=== PATIENT | male | born 1995 | race Caucasian/White ===

== ENCOUNTER 2017-07-08 14:01 | Inpatient (IN) | payer OTHER, BC ==
[~2017-07-08] VITALS: Ht 172.7 cm; Wt 64.4 kg
--- NOTE | 2017-07-09 01:00 | NUR ---
PRE-ADMISSION NOTE : The patient is a 22-year-old male who presents to [facility] for medically supervised withdrawal from Heroin , Xanax. He doesnt have Primary Care Provider at this time. He denies history of seizures, denies SI/HI, denies any kind of hallucinations . His longest sober period was 65 days in 2016. He states his substance use has negatively impacted his life by impairing close relationships, and negatively impacting his physical and mental health. He was arrested x2 . XE=149/80, HR=72, SpO2=98% with RA, RR=16, Temp=98.2. [id number], Height=58, CIWA=6, COWS=4. Pt. will be admitted to the unit.
[2017-07-09] MEDS ORDERED: LORAZEPAM 1 MG TABLET PO PRN ×2 (01:15)
[2017-07-09] MEDS ORDERED: DICYCLOMINE HCL 20 MG TABLET PO PRN (01:15)
[2017-07-09] MEDS ORDERED: MIRALAX 17 GM POWD.PACK PO PRN (01:15)
[2017-07-09] MEDS ORDERED: LOPERAMIDE HCL 2 MG CAPSULE PO PRN ×2 (01:15)
[2017-07-09] MEDS ORDERED: diphenhydrAMINE 50 MG CAPSULE PO PRN (01:15)
[2017-07-09] MEDS ORDERED: CLONIDINE HCL 0.1 MG TABLET PO PRN (01:15)
[2017-07-09] MEDS ORDERED: MAG HYDROX/AL HYDROX/SIMETH 30 ML LIQUID UDC PO PRN (01:15)
[2017-07-09] MEDS ORDERED: LORAZEPAM 2 MG/1 ML VIAL IM PRN (01:15)
[2017-07-09] MEDS ORDERED: ONDANSETRON 4 MG/2 ML VIAL IM PRN (01:15)
[2017-07-09] MEDS ORDERED: METHOCARBAMOL 750 MG TABLET PO PRN (01:15)
[2017-07-09] MEDS ORDERED: HYDROXYZINE PAMOATE 25 MG CAPSULE PO PRN (01:15)
[2017-07-09] MEDS ORDERED: MAGNESIUM HYDROXIDE 30 ML LIQUID UDC PO PRN (01:15)
[2017-07-09] MEDS ORDERED: THIAMINE HCL 200 MG/2 ML VIAL IM ONE (01:15)
[2017-07-09] MEDS ORDERED: ACETAMINOPHEN 325 MG TABLET PO PRN (01:15)
--- NOTE | 2017-07-09 01:30 | NUR ---
ADMISSION NOTE : The patient is a 22-year-old male who presents to [facility] for medically supervised withdrawal from Heroin , Xanax. He was admitted on 07/09/2017 . It is his third Detox. Pt. is Full Code, on Reg.Diet, NKA. He doesnt have Primary Care Provider at this time. He denies history of seizures, denies SI/HI, denies any kind of hallucinations Pt. placed on FALL precautions. His longest sober period was 65 days in 2016. He states his substance use has negatively impacted his life by impairing close relationships, and negatively impacting his physical and mental health. He was arrested x2 . Upon assessment, pt is alert and oriented x3 , the patient reported the following symptoms of withdrawal: anxiety, felt tremors, difficulty concentrating, anhedonia. Pt is cooperative, speech is clear and audible. Heart rate is regular. Pt denies chest pain or SOB. PERRLA, breathing is even and unlabored. Lung sounds clear in all lobes, abdomen is soft, pt complains of constipation related to opiate use. WX=801/80, HR=72, SpO2=98% with RA, RR=16, Temp=98.2. [id number], Height=58. Last BM on 07/07/17. Pt's skin is warm, dry and intact. Pt was oriented to room and unit. Pt. was able to provide UDS sample , see results in the PC chart. Safety measures in place : bed on lowest position with side rails x2 up for safety, call light within reach. Will continue to monitor closely and offer help. SUBSTANCE ABUSE HISTORY : -Xanax 4mg QD PO since 06/2017, last use on 07/08/2017, uses since 2016 -HEROIN 2gm snorting QD since 02/2017, last use on 07/08/2017, uses since 2010 Pt. smokes 20 cigarettes QD Occasionally smokes MJ 3.5gm x3-x4/week since 05/2017 , , last use on 07/08/2017, uses since 2007 PAST MEDICAL HISTORY : None Past Family History : - Alcohol and substance use disorder, HTN(father) -Breast Ca. (mother) PAST Tx HISTORY : X3 Detox. X2 Rehab.
[2017-07-09 01:59] LABS: *AMPHETAMINE, URINE NEGATIVE (NEGATIVE); *BARBITURATE, URINE NEGATIVE (NEGATIVE); *CANNABINOID, URINE POSITIVE (NEGATIVE); *COCCAINE, URINE NEGATIVE (NEGATIVE); *OPIATE, URINE POSITIVE (NEGATIVE); *PHENCYCLIDINE SCREEN,URINE NEGATIVE (NEGATIVE)
[2017-07-09 04:00] VITALS: BP 120/60
--- NOTE | 2017-07-09 06:49 | NUR ---
END OF SHIFT : The patient is a 22-year-old male who presents to [facility] for medically supervised withdrawal from Heroin , Xanax. He was admitted on 07/09/2017. Pt. is Full Code, on Reg.Diet, NKA. He denies history of seizures, denies SI/HI, denies any kind of hallucinations Pt. placed on FALL precautions. Pt remains compliant with the treatment plan. No PRNs were given during my shift. V/S remain WNL. RR=16, even and unlabored, lungs clear upon auscultation, abdomen soft and non- distended. Pt denies nausea, vomiting and diarrhea. CIWA , COWS taken when pt. was alert during the night, LAST CIWA=2,COWS=3 at 0400 , NEUBFR=693 ml, voided x1 , slept 3hours. Safety measures in place : bed on lowest position with side rails x2 up for safety, call light within reach. Will continue to monitor closely and offer help.
[2017-07-09 08:00] VITALS: BP 122/41
--- NOTE | 2017-07-09 08:00 | NUR ---
START OF SHIFT 22-year-old male, Heroin and Xanax dependence and medical detox, admitted on 07/09/2017. Pt. is Full Code, on Reg.Diet, NKA, denies history of seizures. On fall precautions. Received report from night RN. Last CIWA 2 and COWS 4 at 0400. Slept 3 hours. Pt alert and oriented. Bed in low position and locked, side rails up x 2, call zaragoza within reach. Will continue to monitor.
[2017-07-09 08:43] LABS: BASOPHILS # (AUTO) 0.1 K/uL (0.0-8.0); BASOPHILS % (AUTO) 1.2 % (0.0-2.0); EOSINOPHILS # (AUTO) 0.1 K/uL (0.0-0.7); EOSINOPHILS % (AUTO) 1.3 % (0.0-7.0); HEMATOCRIT 43.8 % (36.7-47.1); HEMOGLOBIN 15.5 g/dL (12.5-16.3); MEAN CORPUSCULAR HEMOGLOBIN 31.4 uug (23.8-33.4); MEAN CORPUSCULAR HGB CONC 36 g/dL (32.5-36.3); MEAN CORPUSCULAR VOLUME 88.5 fL (73.0-96.2); MONOCYTES # (AUTO) 0.7 K/uL (2.0-10.0); MONOCYTES % (AUTO) 10.5 % (0.0-11.0); NEUTROPHILS # (AUTO) 4.1 K/uL (1.8-8.9); PLATELET COUNT (AUTO) 230 K/uL (152-348); RED BLOOD CELL COUNT(AUTO) 4.95 MIL/uL (4.06-5.63)
[2017-07-09 08:53] LABS: ALANINE AMINOTRANSFERASE 16 U/L (16-63); ALKALINE PHOSPHATASE 71 U/L (50-136); AMYLASE 60 U/L (25-115); ASPARTATE AMINOTRANSFERASE 19 U/L (15-37); BILIRUBIN,TOTAL 0.7 mg/dL (0.2-1.0); CARBON DIOXIDE 32 mmol/L (21-32); CHLORIDE 103 mmol/L (98-107); CREATININE 1.1 mg/dL (0.6-1.3); ETHANOL < 3 MG/DL (0-0); GLUCOSE 114 mg/dL (74-106); LIPASE 70 U/L (73-393); MAGNESIUM 1.6 mg/dL (1.8-2.4); POTASSIUM 4.3 mmol/L (3.5-5.1); TOTAL PROTEIN, SERUM 7.8 g/dL (6.4-8.2); UREA NITROGEN, BLOOD 12 mg/dL (7-18)
[2017-07-09] MEDS ORDERED: MULTIVITAMINS,THERAPEUTIC TABLET PO SCH (09:00)
[2017-07-09] MEDS ORDERED: THIAMINE HCL 100 MG TABLET PO SCH (09:00)
[2017-07-09] MEDS ORDERED: FOLIC ACID 1 MG TABLET PO SCH (09:00)
[2017-07-09 09:36] LABS: THYROID STIMULATING HORMONE 1.007 mIU/mL (0.358-3.740)
[2017-07-09] MEDS ORDERED: MAGNESIUM OXIDE 400 MG TABLET PO ONE (09:45)
[2017-07-09] MEDS ORDERED: BUPRENORPHINE HCL 2 MG TAB.SUBL SL PRN (09:45)
[2017-07-09 12:00] VITALS: BP 115/70
[2017-07-09] MEDS: BUPRENORPHINE HCL 2 MG TAB.SUBL SL SCH ×3 (13:18→20:32)
[2017-07-09] MEDS: LORAZEPAM 1 MG TABLET PO SCH ×2 (13:18→20:31)
[2017-07-09] MEDS: ONDANSETRON ODT 4 MG TAB.RAPDIS SL PRN ×2 (13:29→18:56)
--- NOTE | 2017-07-09 13:29 | NUR ---
PRN MEDICATION ADMINISTRATION Pt reporting nausea. Given PRN Zofran SL. Will reassess.
[2017-07-09] MEDS: IBUPROFEN 400 MG TABLET PO PRN ×2 (13:35→23:31)
--- NOTE | 2017-07-09 13:35 | NUR ---
PRN MEDICATION ADMINISTRATION Pt reporting back, leg, knee pain. Given PRN Motrin and PRN Robaxin. Will Reassess.
--- NOTE | 2017-07-09 13:59 | NUR ---
PRN MEDICATION REASSESSMENT Pt received PRN Zofran at 1329 for report of nausea. At 1359, pt states nausea relieved.
--- NOTE | 2017-07-09 14:35 | NUR ---
PRN MEDICATION REASSESSMENT Pt received PRN Motrin and Robaxin PRN at 1335 for back, leg and knee pain. At 1435, patient states pain decreased, medication effective.
[2017-07-09 16:00] VITALS: BP 128/60
--- NOTE | 2017-07-09 18:51 | NUR ---
PRN ZOFRAN REFUSAL Pt with emesis x 1. Refusing Zofran IM.
--- NOTE | 2017-07-09 18:56 | NUR ---
PRN MEDICATION ADMINISTRATION Pt with emesis x 1. Given Zofran SL. Will reassess.
--- NOTE | 2017-07-09 19:26 | NUR ---
PRN MEDICATION REASSESSMENT. 1855, pt with emesis x 1. Given Zofran SL. 0, pt had second emesis. Pt refuses Zofran IM. Endorsed to night RN.
--- NOTE | 2017-07-09 19:27 | NUR ---
END OF SHIFT 22-year-old male, Heroin and Xanax dependence and medical detox, admitted on 07/09/2017. Pt. is Full Code, on Reg.Diet, NKA, denies history of seizures. On fall precautions. First dose Subutex given as scheduled dose at 1300, COWS 12 at time of dose. Also at 1300, Ativan taper also started, given Ativan 2 mg, CIWA 11. PRN Zofran SL given at 1329 for pt reporting nausea, at 1359, pt reported nausea relieved. PRN Robaxin and PRN motrin given at 1335 for back/leg /knee pain. At 1435, pt states pain decreased, medication effective. AT 1645, COWS 7 and CIWA 2. 1856, pt with emesis x 1. Given Zofran SL. 1920, pt had second emesis. Pt refuses Zofran IM. Endorsed to night RN. Report given to night RN. Bed in low position and locked, side rails up x 2, call zaragoza within reach.
--- NOTE | 2017-07-09 19:30 | NUR ---
Start of Shift Patient is a 22 year old male admitted to [facility] on 07-09-17 for opiate and benzo detox. He is a full code, on a regular diet and has NKA. Patient is on fall precautions. Patient is currently on a five day ativan and subutex taper, started today. HE has been having periods of N/V this afternoon and received Zofran SL with effectiveness noted. Safety measures in place, bed locked and in lowest position, 2 side rails up for safety, call light within reach. Patient in bed resting at change of shift. Denies further N/V. Report received from AM nurse. Addendum: 07/09/17 at 2009 by BELKYS CONTRERAS RN last COWS 7 PARKER 2 at 1600
[2017-07-09 20:00] VITALS: BP 140/75
[2017-07-09] MEDS: GABAPENTIN 300 MG CAPSULE PO SCH (20:31)
--- NOTE | 2017-07-09 20:31 | NUR ---
PRN MEDICATION DICYCLOMINE 20 MG PO ADMINISTERED FOR ABDOMINAL SPASMS. EFFECT PENDING.
--- NOTE | 2017-07-09 21:31 | NUR ---
Reassessment of patient Patient reassessed one hour after PRN dicyclomine 20 mg administered for abdominal spasms. Effect noted. Patient resting comfortably, eyes closed. no further abdominal spasms noted at present time
[2017-07-09 23:32] VITALS: BP 137/75
--- NOTE | 2017-07-09 23:33 | NUR ---
PRN medication Patient with complaints of chills/restlessness/anxiety/restless legs and generalized body aches and pain of 5/10. Vital signs BP 137/75, P 94, R 18, T 98.1, SPO2 99% on RA COWS 11/CIWA 10 Clonidine 0.1 mg PO administered for anxiety/chills Motrin 400 mg PO administered for pain/bodyaches 5/10 Vistaril 25 mg PO administered for anxiety/restlessness Effect pending
[2017-07-10 00:11] VITALS: BP 126/74
--- NOTE | 2017-07-10 00:33 | NUR ---
Reassessment of patient Patient reassessed one hour after receiving the following PRN medications: Clonidine 0.1 mg PO administered for anxiety/chills Motrin 400 mg PO administered for pain/bodyaches 5/10 Vistaril 25 mg PO administered for anxiety/restlessness Patient currently resting comfortably in bed, eyes closed. Breathing even and unlabored. No further complaints offered.
--- NOTE | 2017-07-10 04:09 | NUR ---
CIWA/COWS deferred Patient refused 0400 vital signs. COWS/CIWA deferred for sleep.
--- NOTE | 2017-07-10 06:47 | NUR ---
End of shift Patient is a 22 year old male admitted to [facility] on 07-09-17 for opiate and benzo detox. He is a full code, on a regular diet and has NKA. Patient is on fall precautions. Patient is currently on a five day Ativan and Subutex taper, started midday 07-09-17. Patients vital signs at 1999: BP 140/75, P 90, R 18, SPO2 99% on RA. CIWA 14, COWS 12. Dicyclomine 20 mg PO administered for abdominal spasms at 2030. Vital signs at 2331: BP137/75, P 94,R 18, SPO2 99% on RA. COWS 11 CIWA 10. Patient received Clonidine 0.1 mg PO, Vistaril 25 mg, and Motrin 400 mg. with effectiveness noted. Patient slept a total of 10 hours. Intake 1246 ml, Output 2 voids, 1 emesis, 1 BM. Safety measures in place, bed locked and in lowest position, 2 side rails up for safety, call light within reach. Report given to AM nurse
--- NOTE | 2017-07-10 07:05 | NUR ---
START OF SHIFT: RECEIVED PT A/O X 4. HE C/O NAUSEA,BODY ACHES,SWEATS,CHILLS ,RESTLESSNESS AND ANXIETY. PRN ZOFRAN ADMINISTERED PRIOR TO SCHEDULED MEDS. COWS 13 CIWA 12.SUBUTEX AND ATIVAN TAPER ENCOURAGE REST AND INCREASED FLUIDS TODAY. WILL CONTINUE TO MONITOR AND OFFER SUPPORT. Addendum: 07/10/17 at 1112 by KOSTAS MILLARD RN ACTUAL TIME 0815
[2017-07-10 08:00] VITALS: BP 131/60
[2017-07-10] MEDS: ONDANSETRON ODT 4 MG TAB.RAPDIS SL PRN (08:31)
[2017-07-10] MEDS: BUPRENORPHINE HCL 2 MG TAB.SUBL SL SCH ×3 (08:48→20:32)
[2017-07-10] MEDS: GABAPENTIN 300 MG CAPSULE PO SCH ×2 (08:48→20:31)
[2017-07-10] MEDS: LORAZEPAM 1 MG TABLET PO SCH ×3 (08:48→20:31)
[2017-07-10] MEDS ORDERED: TUBERCULIN,PURIF.PROT.DERIV. 5 TU/0.1 ML TEST ID ONE (09:00)
[2017-07-10 12:00] VITALS: BP 114/64
[2017-07-10] MEDS ORDERED: BUPRENORPHINE HCL 2 MG TAB.SUBL SL ONE (12:00)
[2017-07-10] MEDS ORDERED: LORAZEPAM 1 MG TABLET PO ONE (12:00)
[2017-07-10 12:11] LABS: HEPATITIS B SURFACE AG Negative (Negative)
[2017-07-10] MEDS: DICYCLOMINE HCL 20 MG TABLET PO SCH ×2 (14:48→20:31)
[2017-07-10 16:00] VITALS: BP 126/63
[2017-07-10] MEDS ORDERED: KETOROLAC TROMETHAMINE 30 MG INJ IM PRN (17:00)
[2017-07-10] MEDS ORDERED: IBUPROFEN 600 MG TABLET PO PRN (17:00)
--- NOTE | 2017-07-10 18:27 | NUR ---
END OF SHIFT: PT CONTINUES ON ATIVAN/SUBUTEX TAPER. HE REFUSED PPD THIS AM. HE C/O CHILLS,SEATS,BODY ACHES RESTLESSNESS AND NAUSEA. PRN ZOFRAN GIVEN AND EFFECTIVE FOR NAUSEA. LAST COWS 8 CIWA 4. HE WAS COMPLIANT WITH INCREASED FLUIDS AND REST. HE ATE VERY LITTLE AND STATES HE HAS NO APPETITE. WILL PASS SHIFT REPORT TO ONCOMING NIGHT NURSE.
--- NOTE | 2017-07-10 19:30 | NUR ---
Start of Shift Patient is a 22 year old male admitted to [facility] on 07-09-17 for opiate and benzo detox. He is a full code, on a regular diet and has NKA. Patient is on fall precautions. Patient is currently on a five day ativan and subutex taper. Last COWS 8 CIWA 4. Tolerating fluids well, Denies any current N/V. Appetite is poor. Safety measures in place, bed locked and in lowest position, 2 side rails up for safety, call light within reach. Patient in bed resting at change of shift. Report received from AM nurse.
[2017-07-10 20:00] VITALS: BP 124/64
[2017-07-11] VITALS: BP 127/62
--- NOTE | 2017-07-11 04:00 | NUR ---
CIWA/COWS DEFERRED/VITAL SIGNS REFUSED PATIENT REFUSED 0400 VITAL SIGNS 0400 CIWA & COWS DEFERRED FOR SLEEP
--- NOTE | 2017-07-11 07:00 | NUR ---
End of shift Patient is a 22 year old male admitted to [facility] on 07-09-17 for opiate and Benzo Detox. He is a full code, on a regular diet and has NKA. Patient is on fall precautions. Patient is currently on a five day Ativan and Subutex taper. Patients vital signs at 2000: BP 124/64, P 86, R 16, SPO2 98% on RA. CIWA 8, COWS 8. Vital signs at 0000: BP 127/62, P 71,R 16, SPO2 98% on RA. COWS 6 CIWA 5. Patient slept a total of 7 hours. Intake 1300 ml, Output 2voids, 1 BM. Tolerating diet and fluids. Safety measures in place, bed locked and in lowest position, 2 side rails up for safety, call light within reach. Report given to AM nurse
--- NOTE | 2017-07-11 07:57 | NUR ---
START OF SHIFT: RECEIVED PT LAYING IN BED A/O X 4. HE STATES HE FEELS A LITTLE BETTER THAN YESTERDAY AND IS ACTUALLY GETTING A BIT OF AN APPETITE. HE STATES HE HAD SOME CEREAL AND TOLERATED WELL. HE STATES HE ALSO SLEPT PRETTY GOOD LAST NIGHT. HE C/O BODY ACHES,ANXIETY,SWEATS AND CHILLS. HE STATES DETOX MEDS ARE EFFECTIVE. SUBUTEX/ATIVAN TAPER IN PROGRESS TO MANAGE S/S OF W/D. COWS 6 CIWA 4 ENCOURAGED INCREASED FLUIDS TO ASSIST IN FACILITATING DETOX PROCESS
[2017-07-11 08:00] VITALS: BP 122/64
[2017-07-11] MEDS: DICYCLOMINE HCL 20 MG TABLET PO SCH ×3 (08:57→21:13)
[2017-07-11] MEDS: GABAPENTIN 300 MG CAPSULE PO SCH ×3 (08:57→21:13)
[2017-07-11] MEDS ORDERED: LORAZEPAM 1 MG TABLET PO SCH ×3 (09:00→21:00)
[2017-07-11] MEDS ORDERED: BUPRENORPHINE HCL 2 MG TAB.SUBL SL SCH (09:00)
[2017-07-11 12:00] VITALS: BP 119/62
[2017-07-11] MEDS: BUPRENORPHINE HCL 2 MG TAB.SUBL SL SCH ×2 (14:40→21:13)
[2017-07-11 16:00] VITALS: BP 120/63
--- NOTE | 2017-07-11 18:42 | NUR ---
END OF SHIFT: PT CONTINUES ON ATIVAN/SUBUTEX TAPER. HE C/O CHILLS,,BODY ACHES RESTLESSNESS THIS AM AND STATES HE FEELS BETTER TODAY AND IS GETTING AN APPETITE. NO PRNS GIVEN ON THIS SHIFT. LAST COWS 4 CIWA 4. HE WAS COMPLIANT WITH INCREASED FLUIDS AND SHOWERED TODAY. HE ATE 50 % OF MEALS. HE STATES HE WILL ATTEND GROUPS TOMORROW. [facility]
--- NOTE | 2017-07-11 19:35 | NUR ---
Start of Shift Patient is a 22 year old male admitted to [facility] on 07-09-17 for opiate and benzo detox. He is a full code, on a regular diet and has NKA. Patient is on fall precautions. Patient is currently on a five day Ativan and Subutex taper. Last CIWA 4, COWS 4 at 1600. Safety measures in place, bed locked and in lowest position, 2 side rails up for safety, call light within reach. Tolerating diet and fluids. Patient in bed resting at change of shift. Report received from AM nurse.
[2017-07-11 20:00] VITALS: BP 114/47
[2017-07-11 21:00] VITALS: BP 121/69
[2017-07-12] VITALS: BP 124/60
--- NOTE | 2017-07-12 04:00 | NUR ---
CIWA/COWS DEFERRED/VITAL SIGNS REFUSED PATIENT REFUSED 0400 VITAL SIGNS 0400 CIWA & COWS DEFERRED FOR SLEEP
--- NOTE | 2017-07-12 06:46 | NUR ---
End of shift Patient is a 22 year old male admitted to [facility] on 07-09-17 for opiate and Benzo Detox. He is a full code, on a regular diet and has NKA. Patient is on fall precautions. Patient is currently on a five day Ativan and Subutex taper. Patients vital signs at 1999: BP 114/47, P 64, R 16, SPO2 99% on RA, T 98.0 COWS 4/CIWA 4. VS at 2100 BP 121/69, P 68, R 18, SPO2 99% on RA, T 98.6. VS at 0000 BP 124/61, P 60, R 16, SPO2 99% on RA, T 98.0 COWS 4, CIWA 4. Patient slept a total of 5 hours. Intake 1100 ml, Output 2voids. Tolerating diet and fluids. Safety measures in place, bed locked and in lowest position, 2 side rails up for safety, call light within reach. Report given to AM nurse.
--- NOTE | 2017-07-12 07:30 | NUR ---
START OF SHIFT Pt 22 y/o male admitted for heroin/ xanax/ marijuana dependence. Pt received in room on bed awake watching television. Pt alert and oriented to name, place, and time. Perrla. Skin warm and slightly moist to touch. Respirations even and unlabored. Pt anxious this morning. It was reported that pt slept for 5 hours last night. Bed on lowest position with side rails x2 up for safety. Call light within reach. No distress noted at this time.
[2017-07-12 08:00] VITALS: BP 111/61
[2017-07-12] MEDS: BUPRENORPHINE HCL 2 MG TAB.SUBL SL SCH ×3 (09:11→20:19)
[2017-07-12] MEDS: GABAPENTIN 300 MG CAPSULE PO SCH ×3 (09:11→20:19)
[2017-07-12] MEDS: LORAZEPAM 1 MG TABLET PO SCH ×2 (09:11→20:19)
[2017-07-12] MEDS: DICYCLOMINE HCL 20 MG TABLET PO SCH ×3 (09:12→20:19)
--- NOTE | 2017-07-12 10:44 | NUR ---
Therapist prompted client about group times. Client stated he would start attending groups today.
[2017-07-12 12:28] VITALS: BP 125/71
[2017-07-12 17:11] VITALS: BP 117/70
--- NOTE | 2017-07-12 18:25 | NUR ---
END OF SHIFT Pt 22 y/o male admitted for heroin/ xanax dependence. Pt alert and oriented to name, place, and time. Perrla. Skin warm and dry to touch. Respirations even and unlabored. Bilateral hand tremors noted slightly. Pt with periods of anxiety throughout the day. Pt observed mostly in room and patio throughout the day. Pt attended group activity today. Pt was seen by MD today. Pt medication compliant and tolerated well. No ASE noted. Bed on lowest position with side rails x2 up for safety. Call light within reach. No distress noted at this time.
--- NOTE | 2017-07-12 19:10 | NUR ---
START OF SHIFT Patient is 22-year-old male admitted on 07/09/17 for opiate and benzo dependency. Patient denies past medical history, with no history of seizures. Patient is FULL code, NKA, and on regular diet. Upon assessment, patient is alert and oriented x4, resting in bed, respirations are even and unlabored. Patient is on fall precautions, safety measures in place, call light within reach. Will continue to monitor.
[2017-07-12 20:00] VITALS: BP 119/55
[2017-07-12] MEDS ORDERED: TRAZODONE 50 MG TABLET PO PRN (21:00)
[2017-07-13] VITALS: BP 118/65
--- NOTE | 2017-07-13 | NUR ---
MIDNIGHT CIWA & COWS DEFERRED CIWA and COWS deferred due to patient being asleep, to be assessed while patient is awake per protocol. Patient's breathing is even and unlabored, safety measures in place, call light within reach. Will continue to monitor.
--- NOTE | 2017-07-13 04:00 | NUR ---
0400 CIWA & COWS DEFERRED, VITALS REFUSED Patient refuses to be woken up for 0400 vital signs. Patient's respirations are 16/min, even and unlabored. Unable to score COWS and CIWA at this time due to patient sleeping, to be assessed while patient is awake, per protocol. Safety measures are in place, call light within reach, will continue to monitor.
--- NOTE | 2017-07-13 07:05 | NUR ---
END OF SHIFT Patient is 22-year-old male admitted on 07/09/17 for opiate and benzo dependency. Patient denies past medical history, with no history of seizures. Patient is FULL code, NKA, and on regular diet. Patient slept for 7 hrs, total intake 1600mL, void x3, stool x1. Patient received no PRNs during shift. Last COWS score was 5, last CIWA score was 3. Continuing with Subutex and Ativan tapers, tolerating well. Patient is on fall precautions, safety measures in place, call light within reach. Will endorse to day shift.
--- NOTE | 2017-07-13 07:30 | NUR ---
START OF SHIFT Pt 22 y/o male admitted for heroin/ xanax/ marijuana dependence. Pt received in room on bed awake watching television. Pt alert and oriented to name, place, and time. Perrla. Skin warm and slightly moist to touch. Respirations even and unlabored. Pt reports some anxiety this morning. It was reported that pt slept for 7 hours last night. Bed on lowest position with side rails x2 up for safety. Call light within reach. No distress noted at this time.
[2017-07-13] MEDS: DICYCLOMINE HCL 20 MG TABLET PO SCH ×3 (08:17→21:05)
[2017-07-13] MEDS: GABAPENTIN 300 MG CAPSULE PO SCH ×3 (08:17→20:59)
[2017-07-13 08:23] VITALS: BP 120/68
[2017-07-13] MEDS ORDERED: LORAZEPAM 1 MG TABLET PO SCH (09:00)
[2017-07-13] MEDS ORDERED: BUPRENORPHINE HCL 2 MG TAB.SUBL SL SCH (09:00)
[2017-07-13 12:12] VITALS: BP 122/62
[2017-07-13 17:01] VITALS: BP 123/58
--- NOTE | 2017-07-13 18:53 | NUR ---
END OF SHIFT Pt 22 y/o male admitted for heroin/ xanax/ marijuana dependence. Pt alert and oriented to name, place, and time. Perrla. Skin warm and slightly moist to touch. Respirations even and unlabored. Bilateral hand tremors noted slightly. Pt with some periods anxiety this morning. Pt mostly observed in recreational room throughout the day. Pt attended group activity. Pt was seen by MD today. Pt medication compliant and tolerated well. No ASE noted. Bed on lowest position with side rails x2 up for safety. Call light within reach. No distress noted at this time.
--- NOTE | 2017-07-13 19:15 | NUR ---
START OF SHIFT Patient is 22-year-old male admitted on 07/09/17 for opiate and benzo dependency. Patient denies past medical history, with no history of seizures. Patient is FULL code, NKA, and on regular diet. Patient has completed Subutex and Ativan tapers today and is scheduled for discharge tomorrow. Upon assessment, patient is alert and oriented x4, resting in bed, respirations are even and unlabored. Patient is on fall precautions, safety measures in place, call light within reach. Will continue to monitor.
[2017-07-13 20:00] VITALS: BP 126/68
[2017-07-13] MEDS ORDERED: IBUP-1955 PO (20:06)
[2017-07-13] MEDS ORDERED: GABA-534 PO ×2 (20:06)
[2017-07-13] MEDS ORDERED: TRAZ-144 PO (20:06)
[2017-07-13] MEDS ORDERED: HYDR-3895 PO (20:06)
[2017-07-13] MEDS ORDERED: METH-406 PO (20:06)
[2017-07-13] MEDS ORDERED: DICY20TA28 PO (20:06)
--- NOTE | 2017-07-13 20:59 | NUR ---
PRN TRAZODONE Patient reports difficulty sleeping and requests aid. PRN Trazodone 50mg given PO. Safety measures in place, call light within reach. Will reassess in one hour.
--- NOTE | 2017-07-13 21:59 | NUR ---
PRN TRAZODONE REASSESSMENT Patient is resting in bed with his eyes closed. PRN Trazodone effective. Patient's respirations are even and unlabored. Bed is locked in low position, side rails up x2, call light within reach, will continue to monitor.
--- NOTE | 2017-07-14 | NUR ---
MIDNIGHT VITALS REFUSED, COWS & CIWA DEFERRED Patient refuses to be woken up for midnight vitals. Respirations are 16/min, breathing is even and unlabored at this time. Unable to score COWS and CIWA at this time due to patient sleeping; to be assessed while patient is awake per protocol. Safety measures in place, call light within reach. Will continue to monitor.
--- NOTE | 2017-07-14 04:00 | NUR ---
4AM VITALS REFUSED, COWS & CIWA DEFERRED Patient refuses to be woken up for 0400 vitals. Respirations are 16/min, breathing is even and unlabored at this time. Unable to score COWS and CIWA at this time due to patient sleeping; to be assessed while patient is awake per protocol. Safety measures in place, call light within reach. Will continue to monitor.
--- NOTE | 2017-07-14 07:20 | NUR ---
END OF SHIFT Patient is 22-year-old male admitted on 07/09/17 for opiate and benzo dependency. Patient denies past medical history, with no history of seizures. Patient is FULL code, NKA, and on regular diet. Patient has completed Subutex and Ativan tapers yesterday and is scheduled for discharge today. Patient has slept 8 hrs, total intake 946 mL, void x1, stool x0. Patient received PRN Trazodone for sleep; effective. Last COWS score was 1 and last CIWA score was 2. Patient is on fall precautions, safety measures in place, call light within reach. Will endorse to day shift.
--- NOTE | 2017-07-14 07:44 | NUR ---
START OF SHIFT Received report from night nurse. 22 year old male admitted on 07/09/17 for opiate and benzo withdrawals. Pt has completed taper and is medically cleared for discharge. Pt is aware and states he is ready. Most recent COWS is 1 and CIWA is 2, PRN Trazodone administered and effective, pt slept for 8 hours. Ambulates with a steady gait, does not present with s/s of withdrawals. All needs met at this time. Pt is in the showers. Will continue to monitor.
[2017-07-14 08:05] VITALS: BP 114/76
[2017-07-14] MEDS: DICYCLOMINE HCL 20 MG TABLET PO SCH (08:27)
[2017-07-14] MEDS: GABAPENTIN 300 MG CAPSULE PO SCH (08:27)
--- NOTE | 2017-07-14 08:55 | NUR ---
D/C NOTE Pt is A/O x4. V/S remain WNL. Pt denies SI/HI or hallucinations. Pt shows no s/s of acute withdrawal at this time, and is stable. has medically cleared pt for d/c . Education on Hepatitis C, smoking cessation and medication side effects provided. Pt verbalizes understanding. All pt belongings are in belonging bag, including prescriptions, pt did not have any home medications. Refuses PNU/FLU vaccination. Pt is being accompanied by [facility] at this time to be transported to rehab. All needs met.
== END 2017-07-14 08:55 | DRG 895 ==
LOC: SRC 07-09 01:10
PROVIDERS: ADMIT Internal Medicine; ATTEND Internal Medicine
PROC: HZ2ZZZZ Detoxification Services for Substance Abuse Treatment (ICD-10-PCS; principal; 2017-07-09)
PROC: HZ41ZZZ Group Counseling for Substance Abuse Treatment, Behavioral (ICD-10-PCS; 2017-07-11)
DX: F11.23 Opioid dependence with withdrawal (principal); E83.42 Hypomagnesemia; F17.210 Nicotine dependence, cigarettes, uncomplicated; Z80.3 Family history of malignant neoplasm of breast; F13.232 Sedative, hypnotic or anxiolytic dependence with withdrawal with perceptual disturbance; Z81.1 Family history of alcohol abuse and dependence; Z82.49 Family history of ischemic heart disease and other diseases of the circulatory system; R73.9 Hyperglycemia, unspecified; F12.90 Cannabis use, unspecified, uncomplicated; G47.00 Insomnia, unspecified; F41.9 Anxiety disorder, unspecified
CPT/HCPCS: 36415; 70030-TC; 80307; 80349; 80361; 83690; 83735; 84443; 85025; 86592; 86705; 86803; 87340; 87806; G0480; J2405; Q0162